=== PATIENT | female | born 1995 | race Two or more races ===

== ENCOUNTER 2020-06-16 08:18 | Emergency (ER) | payer OTHER ==
[2020-06-16 08:32] VITALS: BP 110/59; PULSE 74; TEMP 98.7
[2020-06-16] MEDS ORDERED: ONDANSETRON 4 MG/2 ML VIAL IVPUSH ONE (08:57)
[2020-06-16] MEDS ORDERED: PANTOPRAZOLE SODIUM 40 MG VIAL IVPUSH ONE (08:57)
[2020-06-16] MEDS ORDERED: ACETAMINOPHEN 1000 MG/100 ML VIAL (NON FORMULARY) IVPB ONE (08:57)
[2020-06-16] MEDS ORDERED: SODIUM CHLORIDE 1,000 ML IV STA (08:57)
[2020-06-16] MEDS ORDERED: ACETAMINOPHEN INJECTION 100 ML IVPB ONE (09:04)
[2020-06-16] MEDS ORDERED: ONDANSETRON 4 MG/2 ML VIAL ONE (09:04)
[2020-06-16] MEDS ORDERED: PANTOPRAZOLE SODIUM 40 MG VIAL ONE (09:05)
[2020-06-16 09:11] LABS: BASO % 0.7 % (0-2.0); EOS % 4.8 % (0-4.5); HEMATOCRIT 39.6 % (32.4-45.2); HEMOGLOBIN 12.5 GM/dL (10.7-15.3); LYMPH % 29.4 % (8-40); MCH 22.5 pg (25.7-33.7); MCHC 31.5 g/dl (32.0-36.0); MEAN CELL VOLUME 71.3 fl (80-96); MEAN PLT VOLUME 9.1 fl (7.5-11.1); MONO % 6.8 % (3.8-10.2); NEUT % 58.3 % (42.8-82.8); PLATELET COUNT 224 K/MM3 (134-434); RBC 5.55 M/mm3 (3.60-5.2); RDW 14.5 % (11.6-15.6); WHITE BLOOD COUNT 5.1 K/mm3 (4.0-10.0)
[2020-06-16 09:14] LABS: PH,URINE 6.5 (5.0-8.0); URINE APPEARANCE CLEAR; URINE BILIRUBIN NEGATIVE (NEGATIVE); URINE COLOR YELLOW; URINE GLUCOSE (UA) NEGATIVE (NEGATIVE); URINE KETONE NEGATIVE (NEGATIVE); URINE LEUK ESTERASE NEGATIVE (NEGATIVE); URINE NITRITE NEGATIVE (NEGATIVE); URINE PROTEIN NEGATIVE (NEGATIVE); URINE UROBILINOGEN 0.2 mg/dL (0.2-1.0)
[2020-06-16 09:17] LABS: HCG,QUALITATIVE URINE Negative
[2020-06-16 10:08] LABS: LIPASE 172 U/L (73-393); MAGNESIUM 2.6 mg/dL (1.8-2.4)
[2020-06-16 12:10] LABS: CHLORIDE 109 mmol/L (98-107); POTASSIUM 3.9 mmol/L (3.5-5.1); SODIUM 142 mmol/L (136-145)
[2020-06-16 12:12] LABS: CALCIUM 8.9 mg/dL (8.5-10.1)
[2020-06-16 12:13] LABS: ALBUMIN 4.1 g/dl (3.4-5.0); ANION GAP 9 MMOL/L (8-16); CO2 23 mmol/L (21-32); GLUCOSE,RANDOM 93 mg/dL (74-106)
[2020-06-16 12:16] LABS: CREATININE 0.7 mg/dL (0.55-1.3); SGOT/AST 17 U/L (15-37); SGPT/ALT 19 U/L (13-61)
[2020-06-16 12:18] LABS: BILIRUBIN,TOTAL 0.4 mg/dL (0.2-1); TOT PROT 7.2 g/dl (6.4-8.2)
[2020-06-16 12:19] LABS: ALK PHOS 52 U/L (45-117)
== END 2020-06-16 12:24 | disposition home or self-care (01) ==
LOC: JER 08:18
PROC: 3E033NZ Introduction of Analgesics, Hypnotics, Sedatives into Peripheral Vein, Percutaneous Approach (ICD-10-PCS; principal; 2020-06-16)
PROC: 3E033GC Introduction of Other Therapeutic Substance into Peripheral Vein, Percutaneous Approach (ICD-10-PCS; 2020-06-16)
PROC: 3E0337Z Introduction of Electrolytic and Water Balance Substance into Peripheral Vein, Percutaneous Approach (ICD-10-PCS; 2020-06-16)
DX: R10.13 Epigastric pain (principal)
CPT/HCPCS: 36415; 80053; 81003; 82550; 83690; 83735; 84484; 84703; 85025; 99285-25; J0131